=== PATIENT | male | born 1955 | race Caucasian/White ===

== ENCOUNTER 2024-11-20 04:49 | Observation (INO) | payer BC, OTHER, SELFPAY ==
--- NOTE | 2024-11-20 06:18 | RAD REPORT ---
EXAM: XR Chest, 1 View CLINICAL HISTORY: The patient is 69 years old and is Male; cough, fever TECHNIQUE: Frontal view of the chest. COMPARISON: No relevant prior studies available. FINDINGS: Lungs: Unremarkable. No consolidation. Pleural space: Unremarkable. No pneumothorax. Heart: Unremarkable. Mediastinum: Unremarkable. Normal mediastinal contour. Bones/joints: No acute findings. IMPRESSION: No acute findings in the chest. Electronically signed by: Eros Bundy MD 11/20/2024 06:06 AM [facility] 8 Due to temporary technical issues with the PACS/[employer] reporting system, reports are being jorge luis d by the in-house radiologist without review as a courtesy to ensure prompt reporting the interpreting radiologist is fully responsible for the content of the report. Transcribed Date/Time: 11/20/2024 6:18 AM
[2024-11-20] MEDS ORDERED: VANCOMYCIN 1 GM/VIAL ONE (06:36)
[2024-11-20] MEDS ORDERED: NA CHLORIDE 0.9% 250 ML ONE (06:39)
[2024-11-20 06:57] LABS: PT Prothrombin Time 12.7 SECONDS (9.4-12.5); PTT, Activated Partial Thromb 30.9 SECONDS (24.3-36.9); Protime INR 1.21
[2024-11-20 07:15] LABS: Albumin 3.7 g/dL (3.4-5.0); Anion Gap 10.5 mEq/L (5.0-15.0); Bilirubin Total 3.1 mg/dL (0.2-1.0); Globulin 3.8 g/dL (2.3-3.5); Potassium 3.5 mEq/L (3.5-5.1); Protein, Total 7.5 g/dL (6.4-8.2)
[2024-11-20 07:17] LABS: Absolute Eosinophils 0.1 K/uL (0-0.5); Absolute Lymphocytes (CBC) 0.9 K/uL (0.7-4.9); Absolute Monocytes 0.8 K/uL (0.1-1.3); Absolute Neutrophil 7.3 K/uL (1.8-8.0); Basophils % 0.1 % (0-1.3); Eosinophils % 0.8 % (0-4.4); Hematocrit 43.6 % (39.6-49.0); Hemoglobin 15.3 g/dL (13.6-17.9); Lymphocytes % 10.3 % (15.3-44.8); MCHC 35.1 g/dL (32.0-36.0); MCV 82.5 fL (80-100); MPV 7.4 fL (7.6-11.3); Monocytes % 8.8 % (3.3-12.3); Nucleated Red Blood Cells % 0.2 % (0-0); Platelets 157 thou/uL (152-406); RBC Red Blood Cell Count 5.29 M/uL (4.33-5.43); Red Cell Distribution Width 13.9 % (12.1-15.2)
--- NOTE | 2024-11-20 07:35 | RAD REPORT ---
EXAM: US Duplex Left Lower Extremity Veins CLINICAL HISTORY: The patient is 69 years old and is Male; Pain;Swelling TECHNIQUE: Real-time duplex ultrasound scan of the left lower extremity veins integrating B-mode tw o-dimensional vascular structure, Doppler spectral analysis, color flow Doppler imaging and Impression. COMPARISON: No relevant prior studies available. FINDINGS: Deep veins: Unremarkable. No DVT in the visualized common femoral, femoral, or popliteal veins. The veins demonstrate normal color flow, are normally compressible where visualized, with normal phasic flow and/or augmentation response. Soft tissues: No acute findings. IMPRESSION: No evidence of DVT in the left lower extremity veins. Electronically signed by: Eros Bundy MD 11/20/2024 07:30 AM [facility] 8 Due to temporary technical issues with the PACS/[employer] sc[employer] reporting system, reports are being signed by the in-house radiologist without review as a courtesy to ensure prompt reporting the interpreting radiologist is fully responsible for the content of the report. Transcribed Date/Time: 11/20/2024 7:34 AM
--- NOTE | 2024-11-20 08:56 | RAD REPORT ---
EXAMINATION: Lower Extremity W/ Cont CLINICAL INDICATION: Male, 69 years old.leg pain and swelling TECHNIQUE: CT above extremity was performed with contrast. Reformats were performed. One or more of t he following dose reduction techniques were used: Automated exposure control, adjustment of the mA and/or kV according to patient size, and/or iterative reconstruction. Unless otherwise specified, inc idental findings do not require dedicated imaging follow-up. [id number]. COMPARISON: No prior exam. FINDINGS: Status post left knee arthroplasty. Nonspecific small knee effusion. No evidence of hardware complica tions. Major arterial and venous structures are grossly unremarkable. These were assessed on ultrasound brigido ier in the day. Heterogeneous enlargement of the right medial head of the gastrocnemius muscle with intermixed areas of high attenuation. This is suspicious for an intramuscular hematoma. No evidence of active bleeding. IMPRESSION: Enlargement of the medial head of the left gastrocnemius muscle concerning for possible muscle injury an intramuscular hematoma. No evidence of active bleeding. No acute fractures. MRI with and without contrast can be considered if trauma considered unlikely.
--- NOTE | 2024-11-20 08:57 | RAD REPORT ---
EXAMINATION: US LOWER EXTREMITIES ARTERIAL DOPPLER LEFT CLINICAL INDICATION: Male, 69 years old. Pain;Swelling TECHNIQUE: Arterial duplex ultrasound was performed of the left lower extremity with real-time and Do ppler evaluation. [id number]. COMPARISON: No prior exam. FINDINGS: Left leg Doppler: Common femoral: Waveform: Triphasic Peak systolic velocity (cm/sec): 96 Superficial femoral: Waveform: Triphasic Peak systolic velocity (cm/sec): 91 Popliteal Waveform: Triphasic Peak systolic velocity (cm/sec): 50 Tibial: Waveform: Triphasic Peak systolic velocity (cm/sec): 69 Dorsalis pedis: Waveform: Triphasic Peak systolic velocity (cm/sec): 52 IMPRESSION: Unremarkable left lower extremity arterial ultrasound.
--- NOTE | 2024-11-20 10:17 | EDPHYS ---
Physician Documentation [facility] Name: Michael Thapa III Age: 69 yrs Sex: Male : 1955 Arrival Date: 11/20/2024 Time: 04:49 Bed 7 Private MD: ED Physician Niranjan Mccurdy HPI: 11/20 04:53 This 69 yrs old Male presents to ER via Unassigned with complaints of Leg Pain. rn 04:53 The patient presents with pain, swelling, tenderness. The complaints affect the left rn calf. Onset: The symptoms/episode began/occurred yesterday. Modifying factors: The symptoms are alleviated by elevating leg, Ice pack. Severity of symptoms: At their worst the symptoms were moderate, in the emergency department the symptoms have improved. The patient has not experienced similar symptoms in the past. Patient reports noticed left calf swelling and discoloration with warmth that began yesterday. States he noticed after [place]. Denies any trauma or injury. Does not take blood thinners. Never had blood clot. No recent procedures or surgery. No known cancer. Patient reports feeling feverish and also cough and upper respiratory symptoms. Patient has never had this happen before. Reports improvement with elevation and ice pack.. Historical: - Allergies: 05:54 NKDA; ay - Immunization history:: Last tetanus immunization: up to date. - Infectious Disease History:: Denies. - Family history:: not pertinent. - Social history:: Smoking status: Patient denies any tobacco usage or history of. - Hospitalizations: : No recent hospitalization is reported. ROS: 04:54 Constitutional: Positive for subjective fever and chills ENT: Positive for congestion rn and sore throat Cardiovascular: Negative for chest pain, palpitations, and edema, Respiratory: Positive for cough, negative for shortness of breath Abdomen/GI: Negative for abdominal pain, nausea, vomiting, diarrhea, and constipation, MS/Extremity: Positive for left leg swelling and pain with warmth Skin: Positive for discoloration left leg Neuro: Negative for headache, weakness, numbness, tingling, and seizure, Exam: 04:54 Constitutional: This is a well developed, well nourished patient who is awake, alert, rn and in no acute distress. Cardiovascular: Regular rate and rhythm. No pulse deficits. Respiratory: Speaking full sentences, unlabored. MS/ Extremity: Pulses equal, no cyanosis. Neurovascular intact. Left calf with fullness and tenderness with warmth and almost ecchymotic hue. No tenderness of popliteal fossa or along proximal venous system. Strong dorsalis pedis pulse. Left calf with increased circumference compared to right calf. 06:49 ECG was reviewed by the Attending Physician. rn Vital Signs: 05:00 BP 117 / 68; Pulse 66; Resp 20; Temp 98.8; Pulse Ox 93% on R/A; ay 06:30 BP 122 / 105; Pulse 56; Resp 19; Pulse Ox 98% on 3 lpm NC; ay 07:34 BP 103 / 68; Pulse 65; Resp 16; Pulse Ox 99% ; ko1 09:56 BP 132 / 73; Pulse 61; Resp 15; Pulse Ox 100% ; ko1 11:33 Weight 78.47 kg; Height 5 ft. 6 in. ; db 11:33 Body Mass Index 27.92 (78.47 kg, 167.64 cm) db [place] Coma Score: 04:59 Eye Response: spontaneous(4). Motor Response: obeys commands(6). Verbal Response: ay oriented(5). Total: 15. MDM: 04:52 Medical Screening Exam initiated rn 07:32 Transition of care: After a detail discussion of the patient's case, care is rn transferred to Niranjan Mccurdy MD. 10:16 Differential diagnosis: Cellulitis, myositis, hematoma. Data reviewed: vital signs, rt nurses notes, lab test result(s), radiologic studies. Consideration of Admission/Observation Patient was admitted/placed on observation. Management of patient was discussed with the following: Hospitalist: Agrees to admit. I considered the following discharge prescriptions or medication management in the emergency department Medications were administered in the Emergency Department. See MAR. Independent interpretation of the following test(s) in the Emergency Department CT Scan: My interpretation is No fracture seen on interpretation of CT images. Counseling: I had a detailed discussion with the patient and/or guardian regarding the historical points, exam findings, and any diagnostic results supporting the discharge/admit diagnosis, lab results, radiology results, the need for further work-up and treatment in the hospital. Response to treatment: the patient's symptoms have mildly improved after treatment. 11/20 04:53 Order name: Blood Culture Adult (2) rn 11/20 04:53 Order name: CBC with Diff; Complete Time: 07:33 rn 11/20 04:53 Order name: CMP; Complete Time: 07:33 rn 11/20 04:53 Order name: Lactate w/ 2H reflex if indic.; Complete Time: 07:14 rn 11/20 04:53 Order name: Protime (+inr); Complete Time: 07:14 rn 11/20 04:53 Order name: Ptt, Activated; Complete Time: 07:14 rn 11/20 04:53 Order name: Flu; Complete Time: 07:45 rn 11/20 06:40 Order name: Creatine Phosphokinase; Complete Time: 07:33 EDMS 11/20 06:46 Order name: Glucose, Ancillary Testing; Complete Time: 06:51 EDMS 11/20 10:42 Order name: Urinalysis w/ reflexes EDMS 11/20 10:42 Order name: Basic Metabolic Panel EDMS 11/20 10:42 Order name: Basic Metabolic Panel EDMS 11/20 10:42 Order name: Basic Metabolic Panel EDMS 11/20 10:42 Order name: Basic Metabolic Panel EDMS 11/20 10:42 Order name: Basic Metabolic Panel EDMS 11/20 10:42 Order name: Basic Metabolic Panel EDMS 11/20 10:42 Order name: Basic Metabolic Panel EDMS 11/20 10:42 Order name: Basic Metabolic Panel EDMS 11/20 10:42 Order name: CBC with Automated Diff EDMS 11/20 10:42 Order name: CBC with Automated Diff EDMS 11/20 10:42 Order name: CBC with Automated Diff EDMS 11/20 10:42 Order name: CBC with Automated Diff EDMS 11/20 10:42 Order name: CBC with Automated Diff EDMS 11/20 10:42 Order name: CBC with Automated Diff EDMS 11/20 10:42 Order name: CBC with Automated Diff EDMS 11/20 10:42 Order name: CBC with Automated Diff EDMS 11/20 10:42 Order name: Magnesium EDMS 11/20 10:42 Order name: Magnesium EDMS 11/20 10:42 Order name: Magnesium EDMS 11/20 10:42 Order name: Magnesium EDMS 11/20 10:42 Order name: Magnesium EDMS 11/20 10:42 Order name: Magnesium EDMS 11/20 10:42 Order name: Magnesium EDMS 11/20 10:42 Order name: Magnesium EDMS 11/20 10:42 Order name: Phosphorus EDMS 11/20 10:42 Order name: Phosphorus EDMS 11/20 10:42 Order name: Phosphorus EDMS 11/20 10:42 Order name: Phosphorus EDMS 11/20 10:42 Order name: Phosphorus EDMS 11/20 10:42 Order name: Phosphorus EDMS 11/20 10:42 Order name: Phosphorus EDMS 11/20 10:42 Order name: Phosphorus EDMS 11/20 13:30 Order name: Urinalysis w/ reflexes eb 11/20 13:44 Order name: Urinalysis w/ reflexes EDMS 11/20 04:53 Order name: Chest Single View XRAY; Complete Time: 07:14 rn 11/20 04:53 Order name: Extremity Venous Uni Ltd US rn 11/20 04:53 Order name: Lower Extremity Artery Uni Ltd ; Complete Time: 08:58 rn 11/20 06:01 Order name: Lower Extremity W/ Cont; Complete Time: 08:58 EDAL 11/20 18:28 Order name: MRI [facility] 11/20 10:42 Order name: CONS Physician Consult [facility] 11/20 04:53 Order name: Accucheck; Complete Time: 06:35 rn 11/20 04:53 Order name: Cardiac monitoring; Complete Time: 05:18 rn 11/20 04:53 Order name: EKG - Nurse/Tech; Complete Time: 05:18 rn 11/20 04:53 Order name: IV Saline Lock - Large Bore; Complete Time: 06:35 rn 11/20 04:53 Order name: Labs collected and sent; Complete Time: 07:03 rn 11/20 04:53 Order name: O2 Per Protocol; Complete Time: 05:28 rn 11/20 04:53 Order name: O2 Sat Monitoring; Complete Time: 05:27 rn 11/20 04:53 Order name: Vital Signs; Complete Time: 05:27 rn EC:49 Rate is 69 beats/min. Rhythm is regular. QRS [place] is Normal. WI interval is normal. QRS rn interval is normal. QT interval is normal. No Q waves. T waves are Normal. No ST changes noted. Clinical impression: Normal ECG. Interpreted by me. Reviewed by me. Administered Medications: 06:47 Drug: vancoMYCIN IVPB 1 grams IVPB once over 2 hrs Route: IVPB; Infused Over: 2 hrs; ay Site: left forearm; 20:53 Follow up: Response: No adverse reaction; IV Status: Infusion continued upon admission ha1 Disposition Summary: 11/20/24 10:15 Hospitalization Ordered Notes: Hospitalization Status: Inpatient Admission rt Provider: Kurt Maier rt Location: Telemetry/MedSurg (Inpatient) rt Condition: Stable rt Problem: new rt Symptoms: are unchanged rt Bed/Room Type: Standard rt Room Assignment: 204(11/20/24 18:51) eb Diagnosis - Cellulitis to left lower extremity rt Forms: - Medication Reconciliation Form rt - SBAR form rt - Leadership Thank You Letter rt Signatures: Dispatcher [employer] EDMS Danial Zavala MD MD rn Botello, Elizabeth eb [place], Ryan, MD MD rt Gerald Mendoza RN RN ay Ayala, Heidy RN ha1 Corrections: (The following items were deleted from the chart) 04:53 04:53 BLOOD CULTURE*+BA.LAB.BRZ ordered. EDMS EDMS 04:53 04:53 CBC+H.LAB.BRZ ordered. EDMS EDMS 04:53 04:53 COMPREHENSIVE METABOLIC PANEL+C.LAB.BRZ ordered. EDMS EDMS 04:53 04:53 LACTATE+C.LAB.BRZ ordered. EDMS EDMS 04:53 04:53 PROTIME (+INR)+COAG.LAB.BRZ ordered. EDMS EDMS 04:53 04:53 PTT, ACTIVATED+COAG.LAB.BRZ ordered. EDMS EDMS 04:53 04:53 Influenza Screen (A \T\ B)+BA.LAB.BRZ ordered. EDMS EDMS 04:53 04:53 Chest Single View+RAD.RAD.BRZ ordered. EDMS EDMS 04:53 04:53 Extremity Venous Uni Ltd+US.RAD.BRZ ordered. EDMS EDMS 04:53 04:53 Lower Extremity Artery Uni Ltd+US.RAD.BRZ ordered. EDMS EDMS 05:54 05:54 Allergies: No Known Allergies; ay ay 06:40 04:55 CREATINE PHOSPHOKINASE+C.LAB.BRZ ordered. EDMS EDMS 18:51 10:15 rt eb
--- NOTE | 2024-11-20 10:17 | ER ---
Nurse's Notes [facility] Name: Michael Thapa III Age: 69 yrs Sex: Male : 1955 Arrival Date: 11/20/2024 Time: 04:49 Bed 7 Private MD: Diagnosis: Cellulitis to left lower extremity Presentation: 11/20 05:47 Chief complaint: EMS states: Left calf pain. Coronavirus screen: Client denies travel ay out of the [place] in the last 14 days. Ebola Screen: No symptoms or risks identified at this time. Initial Sepsis Screen: Does the patient meet any 2 criteria? No. Patient's initial sepsis screen is negative. Does the patient have a suspected source of infection? No. Patient's initial sepsis screen is negative. Risk Assessment: Do you want to hurt yourself or someone else? Patient reports no desire to harm self or others. Note pt BIBA with a c/o left calf pain and discoloration. Pt is alert and oriented VSS, afebrile, strong bilateral pedal pulses. Placed on 2L NC, precision instrument maker and repairer on. Onset of symptoms is unknown. 05:47 Method Of Arrival: EMS: [facility] ay 05:47 Acuity: BIANCA 3 ay Triage Assessment: 05:55 General: Appears in no apparent distress. Behavior is calm, cooperative. Pain: ay Complains of pain in left calf. EENT: No signs and/or symptoms were reported regarding the EENT system. Neuro: Level of Consciousness is awake, alert, obeys commands, Oriented to person, place, time, situation, Speech is normal. Cardiovascular: Denies chest pain, nausea, vomiting, Rhythm is regular. Respiratory: Airway is patent Respiratory pattern is regular, symmetrical. GI: Abdomen is round. : No signs and/or symptoms were reported regarding the genitourinary system. Derm: Reports discoloration to left calf. Historical: - Allergies: 05:54 NKDA; ay - Immunization history:: Last tetanus immunization: up to date. - Infectious Disease History:: Denies. - Family history:: not pertinent. - Social history:: Smoking status: Patient denies any tobacco usage or history of. - Hospitalizations: : No recent hospitalization is reported. Screenin:00 [facility] ED Fall Risk Assessment (Adult) History of falling in the last 3 months, ay including since admission No falls in past 3 months (0 pts) Confusion or Disorientation No (0 pts) Intoxicated or Sedated No (0 pts) Impaired Gait No (0 pts) Mobility Assist Device Used No (0 pt) Altered Elimination No (0 pt) Score/Fall Risk Level 0 - 2 = Low Risk Oriented to surroundings, Maintained a safe environment, Educated pt \T\ family on fall prevention, incl call for assistance when getting out of bed. Abuse screen: Denies threats or abuse. Nutritional screening: No deficits noted. Tuberculosis screening: No symptoms or risk factors identified. Assessment: 04:59 General: Appears in no apparent distress. Behavior is calm, cooperative. Pain: ay Complains of pain in Left calf. Neuro: Level of Consciousness is awake, alert, obeys commands, Oriented to person, place, time, situation, Speech is normal. Cardiovascular: Capillary refill < 3 seconds in bilateral toes. Respiratory: Airway is patent Respiratory effort is even, unlabored, Respiratory pattern is regular, symmetrical. GI: No signs and/or symptoms were reported involving the gastrointestinal system. : No signs and/or symptoms were reported regarding the genitourinary system. EENT: No signs and/or symptoms were reported regarding the EENT system. Derm: No signs and/or symptoms reported regarding the dermatologic system. 07:30 Reassessment: Patient appears in no apparent distress at this time. Patient and/or db family updated on plan of care and expected duration. Pain level reassessed. Patient is alert, oriented x 3, equal unlabored respirations, skin warm/dry/pink. 08:30 Reassessment: Patient appears in no apparent distress at this time. Patient and/or db family updated on plan of care and expected duration. Pain level reassessed. Patient is alert, oriented x 3, equal unlabored respirations, skin warm/dry/pink. 09:30 Reassessment: Patient appears in no apparent distress at this time. Patient and/or db family updated on plan of care and expected duration. Pain level reassessed. Patient is alert, oriented x 3, equal unlabored respirations, skin warm/dry/pink. 11:30 Reassessment: Patient appears in no apparent distress at this time. Patient and/or db family updated on plan of care and expected duration. Pain level reassessed. Patient is alert, oriented x 3, equal unlabored respirations, skin warm/dry/pink. 12:30 Reassessment: Patient appears in no apparent distress at this time. Patient and/or db family updated on plan of care and expected duration. Pain level reassessed. Patient is alert, oriented x 3, equal unlabored respirations, skin warm/dry/pink. 13:44 Reassessment: SEE [facility] FOR CONTINUED DOCUMENTATION. db Vital Signs: 05:00 BP 117 / 68; Pulse 66; Resp 20; Temp 98.8; Pulse Ox 93% on R/A; ay 06:30 BP 122 / 105; Pulse 56; Resp 19; Pulse Ox 98% on 3 lpm NC; ay 07:34 BP 103 / 68; Pulse 65; Resp 16; Pulse Ox 99% ; ko1 09:56 BP 132 / 73; Pulse 61; Resp 15; Pulse Ox 100% ; ko1 11:33 Weight 78.47 kg; Height 5 ft. 6 in. ; db 11:33 Body Mass Index 27.92 (78.47 kg, 167.64 cm) db [place] Coma Score: 04:59 Eye Response: spontaneous(4). Motor Response: obeys commands(6). Verbal Response: ay oriented(5). Total: 15. ED Course: 04:51 Patient arrived in ED. al5 04:51 Danial Zavala MD is Attending Physician. al5 04:59 Gerald Mendoza, RN is Primary Nurse. ay 05:00 Patient has correct armband on for positive identification. Bed in low position. Call ay light in reach. Side rails up X2. 05:18 EKG done, by ED staff, reviewed by Danial Zavala MD. hw 05:25 Chest Single View XRAY In Process Unspecified. EDMS 05:46 Extremity Venous Uni Ltd US In Process Unspecified. EDMS 05:46 Lower Extremity Artery Uni Ltd US In Process Unspecified. EDMS 05:54 Triage completed. ay 05:55 Arm band placed on right wrist. ay 06:49 Maintain EMS IV. Dressing intact. Good blood return noted. Site clean \T\ dry. Gauge \T\ ay site: 20 LFA. Flushed with 10 mL NS. 07:35 Attending Physician role handed off by Danial Zavala MD rt 07:35 Niranjan Mccurdy MD is Attending Physician. rt 07:57 Lower Extremity W/ Cont In Process Unspecified. EDMS 10:15 Kurt Maier is Hospitalizing Provider. rt 13:44 No provider procedures requiring assistance completed. Patient admitted, IV remains in db place. 13:44 Provided Education on: ADMISSION. Client placed on continuous cardiac and pulse db oximetry monitoring. NIBP monitoring applied. surgical dressing maker on. Pulse ox on. NIBP on. Warm blanket given. Pillow given. Administered Medications: 06:47 Drug: vancoMYCIN IVPB 1 grams IVPB once over 2 hrs Route: IVPB; Infused Over: 2 hrs; ay Site: left forearm; 20:53 Follow up: Response: No adverse reaction; IV Status: Infusion continued upon admission ha1 Medication: 05:00 VIS not applicable for this client. ay Outcome: 10:15 Decision to Hospitalize by Provider. rt 13:44 Admitted to ER Hold. [facility]. db 13:44 Condition: stable 13:44 Instructed on the need for admit, 20:53 Patient left the ED. ha1 Signatures: Dispatcher [employer] EDMS Danial Zavala MD MD rn Ayala, Heidy RN RN ha1 Brina Wade RN RN ko1 Jessica Gurrola RN RN db Niranjan Mccurdy MD MD rt Chelsea Stark RN RN Mariaa Lovett Awudu, RN RN ay Corrections: (The following items were deleted from the chart) 05:54 05:54 Allergies: No Known Allergies; ay ay
--- NOTE | 2024-11-20 10:52 | P.HP ---
Certification for Inpatient Patient admitted to: Inpatient With expected LOS: >2 Midnights Practitioner: I am a practitioner with admitting privileges, knowledge of patient current condition, hospital course, and medical plan of care. Services: Services provided to patient in accordance with Admission requirements found in Title 42 Section 412.3 of the Code of Federal Regulations Patient History Date of Service: 11/20/24 Reason for admission: LLE hematoma, cellulitis, myositis History of Present Illness: Michael Thapa is a 69 year old male with pmhx HTN who presents to the ED with c/o Left calf swelling. He presented with swelling, discoloration, and tenderness to his left calf. He reports obvious swelling and pain started yesterday at 4 pm which has worsen and decided at 2 AM this morning that he needed to come to the ED. 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 Laboratory evaluation significant for left shift neutrophils 80, sodium 133, serum glucose 124. CT left lower extremity report "Enlargement of the medial head of the left gastrocnemius muscle concerning for possible muscle injury an intramuscular hematoma. No evidence of active bleeding. No acute fractures." Venous ultrasound reports "No evidence of DVT in the left lower extremity veins" Arterial ultrasound report "Unremarkable left lower extremity arterial ultrasound" Chest x-ray report "No acute findings in the chest" Michael will be admitted to hospitalist service for further evaluation and treatment, Dr. Moreau and Dr. Ferguson consulted Allergies No Known Allergies Allergy (Unverified 11/20/24 05:55) Home Medications: Losartan/Hydrochlorothiazide [Losartan-Hctz 50-12.5 mg Tab] 1 tab PO 1X 11/20/24 Tramadol HCl/Acetaminophen [Ultracet Tablet] 1 each PO Q6H PRN #1 11/20/24 - Past Medical/Surgical History -: Hypertension -: Left knee replacement -: Right inguinal hernia -: Right rotator cuff - Family History Family History: Reviewed- Non-Contributory - Social History Smoking Status: Never smoker Alcohol use: No CD- Drugs: No Review of Systems Musculoskeletal: Leg Pain (Left), Other (Left calf swelling) Physical Examination - Physical Exam General: Alert, In no apparent distress, Oriented x3 HEENT: Atraumatic, Normocephalic Neck: 2+ carotid pulse no bruit, JVD not distended Respiratory: Clear to auscultation bilaterally, Normal air movement Cardiovascular: Normal pulses, Regular rate/rhythm, Normal S1 S2 Capillary refill: <2 Seconds Gastrointestinal: Normal bowel sounds, Soft and benign Musculoskeletal: No clubbing Integumentary: No rashes Neurological: Normal speech, Normal tone - Studies Laboratory Data (last 24 hrs) 11/20/24 11/20/24 11/20/24 06:10 06:10 06:10 WBC 9.10 Hgb 15.3 Hct 43.6 Plt Count 157 PT 12.7 H INR 1.21 APTT 30.9 Sodium 133 L Potassium 3.5 BUN 17 Creatinine 1.05 Glucose 124 H Total Bilirubin 3.1 H AST 17 ALT 24 Alkaline Phosphatase 60 Microbiology Data (last 24 hrs): 11/20/24 06:24 Nasopharnyx Influenza Type A Antigen Screen - Final 11/20/24 06:24 Nasopharnyx Influenza Type B Antigen Screen - Final Assessment and Plan - Plan Assessment and Plan Left lower extremity hematoma, cellulitis, and myositis -MRI tibia/filbula -vancomycin -elevate extremity, Ice pack -hold blood thinners -Pulse check Q shift -Vancomycin daily -Dr. Moreau and Dr. Ferguson consulted -NPO, will recheck for increased swelling at midnight Hyperglycemia -Serum glucose 124 -will monitor, A1C in AM HTN -continue home medications DVT ppx hold lovenox d/t Hematoma, hold SCD to affected left Full code LOS 2 days Discharge Plan: Home Plan to discharge in: 48 Hours - Advance Directives Does patient have a Living Will: No Does patient have a Durable POA for Healthcare: No
[2024-11-20] MEDS: NA CHLORIDE 0.9% 1,000 ML IV SCH (11:00)
[2024-11-20] MEDS: VANCOMYCIN 500 MG in NA CHLORIDE 0.9% 100 ML IVPB ONE (12:30)
[2024-11-20] MEDS ORDERED: VANCOMYCIN 500 MG/VIAL ONE (12:38)
[2024-11-20] MEDS ORDERED: NA CHLORIDE 0.9% 100 ML ONE (12:38)
[2024-11-20] MEDS ORDERED: NA CHLORIDE 0.9% 1,000 ML ONE (12:38)
[2024-11-20 13:44] LABS: Specific Gravity > 1.030 (1.005-1.030); Sqamous Epithelial None Seen /HPF (None Seen); Urine Bacteria None Seen /HPF (<20); Urine Bilirubin NEGATIVE (Negative); Urine Blood Negative (Negative); Urine Clarity Clear (Clear); Urine Color Light-Yellow (Yellow); Urine Culture Reflex Order NOT NEEDED; Urine Glucose NEGATIVE (Negative); Urine Ketones NEGATIVE (Negative); Urine Microscopic Reflex YN ORDER UMIC; Urine Nitrite NEGATIVE (Negative); Urine Protein NEGATIVE (Negative); Urine RBC <5 /HPF (None Seen); Urine Urobilinogen Normal (Normal); Urine WBC <5 /HPF (<5)
[2024-11-20] MEDS: FLU (Fluarix Triv) TS24-25(6MOS UP)/PF 45 MCG/0.5 ML Syringe IM ONE (13:45)
[2024-11-20] MEDS: PNEUMOCOCCAL VACCINE 0.5 ML IMVAC ONE (14:00)
--- NOTE | 2024-11-20 18:28 | RAD REPORT ---
Exam: MRI tib-fib left with and without contrast CLINICAL HISTORY: Leg pain. Leg mass TECHNIQUE: axial, sagittal and coronal magnetic resonance imaging of the left tibia/fibula performed with and wi thout contrast. 17 cc MultiHance administered intravenously. COMPARISON: November 20, 2024 CT Findings: 12 x 8 x 3 cm fluid collection (CC by AP by transverse) is present within the medial head of the aby rocnemius muscle extending from below the knee to the mid aspect of the tibia/fibula. The mass has intermediate to high signal on T1 weighted sequences. It has mostly high signal on T2-weighted sequen clark. The internal components of the mass do not enhance. Peripheral enhancement is present. T2 weighted sequences also demonstrate increased signal within adjacent medial head gastrocnemius mus culature. No abnormality of the tibia seen. IMPRESSION: 12 cm mass medial head gastrocnemius muscle has the appearance of a subacute hematoma. Increased signal within the gastroc medius muscle could be a strain or myositis
[2024-11-20] MEDS ORDERED: MORPHINE 2 MG/ML SYR IV PRN (19:16)
--- NOTE | 2024-11-20 20:11 | CON ---
Continuation: Allergies: NONE. Past Surgical History: Include knee replacement a few years ago on the left knee area. Social History: He does not smoke. He does drink alcohol. Family History: No history of DVTs or any conditions of the muscle. Medications: Reviewed. Physical Examination: General: The patient is awake, alert, in no distress. He feels a lot better. HEENT: Pupils are equal and reactive. Anicteric. Neck: Supple. Chest: Clear. Heart: S1, S2. Abdomen: Soft and depressible. No guarding or rebound. No peritoneal signs. Extremities: Over the lower extremity, the patient has previous scars from previous prosthetic. Als o has a small superficial laceration of the proximal anterior tibia. The patient has what he was chalo cribing as a swelling of the calf region on the upper side. No Homans signs. Normal flexion, extens ion of the extremity. Peripheral pulses are strong and present, dorsalis pedis and posterior tibiali s, popliteal. No paresthesias. Full range of motion. No pallor. Good color, good capillary refill , and full range of motion. There is no ecchymosis seen in that region. There are no blisters. The re are no lacerations in the back and next he describes he can now press it nicely than compared with yesterday. No deformities. Neuro: Cranial nerves 2 through 12 grossly normal limits. Extremity CT shows enlargement of the medial head of the left gastrocnemius muscle concerning for pos sible muscle injury or intramuscular hematoma. No evidence of active bleeding. No acute fractures. Venous Doppler shows no evidence of DVT. Arterial Doppler shows unremarkable dorsalis pedis with tr iphasic peak systolic velocity. Assessment: 1.A 69-year-old patient with unknown origin calf tenderness. This happened yesterday afternoon, [place] until this morning when he came to the ER. He has been in the ER. He feels better. Now, it is nice and soft, is still different compared with the opposite side in the induration, but as is descri bed is nice and soft. He has no problem with paresthesias, no pallor. I discussed with him fabiana salcedo diagnosis. Obviously, I do not see any trauma in that area present. Some times you can have a hematoma. I do not see any evidence of cellulitis at this moment. So, we proposed to him and bring the differential diagnosis something called compartment syndrome. Even though we do not have a histo ry for it and he has no symptoms, I still has to discuss with him the findings. There is an option o f putting the Fannie machine to check compartment pressures. He preferred not to do so. He does no t like that needle. Still also the [place] machine, we are trying to get it here in the hospital [facility] it is not available to me at this moment. 2.He has the option of obviously exploration . He does not want to use that option right now. He understands the risks of that. If by tonight the pain goes back again, if the Fannie becom es available, check compartment pressure or even surgery, but at this moment he does not want to use that option. He understands the risks of that. was then sent home. We going to continue observation and then the orthopedic consult was consulted to make sure that the prosthetic nearby whitt s no relationship to this problem. SHANTAL/MODL Voice ID: [id number] Report ID: [id number]
--- NOTE | 2024-11-20 20:35 | CON ---
Date of Consultation: 11/20/2024 Reason For Service: Swelling of the left upper leg. History Of Present Illness: This is a case of a 69-year-old patient admitted to the hospital with pa in over the upper posterior leg region. The etiology of that is unknown. that yesterday he developed pain in that region. He thought that was charley horse and did not pay much attention. By last night, it was getting worse and this morning he just did not improve by [address] [facility], so he comes to the ER, had an extensive workup including venous Dopplers, CAT scans, arterial D opplers, but the etiology of his swelling is unclear. He does not recall any trauma, any hit, any cr ush injuries, any exertion, any trips, any falls. No insect bite. He does say that he just develope d the swelling slowly, but what he says right now is the today is a lot softer than yesterday. Surgi cody consult was obtained for evaluation. Also, Orthopedic consult since the patient has history of to iron knee replacement in that region 7 years ago. He does not remember any twist on the knee neither or any cuts. He has a superficial ulceration in the anterior tibial region and he states it has been there for a week, which is not cellulitic, it does not seem to be related. Review of Systems: No shortness of breath. No chest pain. No fever. Denies any burning or any cramping of that area. The tightness he says is a lot better compared with last night. He denies any numbing sensation or any change on neurological area, any pallor. Has full range of motion of those extremities. Denies any paresthesia or weakness. DICTATION ENDS HERE. SHANTAL/DANETTE Voice ID: [id number] Report ID: [id number]
[2024-11-20 22:19] VITALS: BMI 27.2
[2024-11-20] MEDS: ACETAMINOPHEN 325 MG TABLET PO PRN (22:24)
[2024-11-20] MEDS: LOSARTAN/HCTZ 50-12.5 PO SCH ×2 (23:02→23:43)
[2024-11-21] MEDS: VANCOMYCIN 1.5 GM in NA CHLORIDE 0.9% 500 ML IVPB SCH (01:51)
[2024-11-21] MEDS ORDERED: HYDRALAZINE HCL 20 MG/ML VIAL IV PRN (06:15)
[2024-11-21 07:56] VITALS: O2SAT 97
[2024-11-21 08:31] LABS: Anion Gap 5.5 mEq/L (5.0-15.0); Magnesium 2.2 mg/dL (1.6-2.4); Phosphorus 2.8 mg/dL (2.5-4.9); Potassium 3.5 mEq/L (3.5-5.1)
[2024-11-21] MEDS ORDERED: VANCOMYCIN 1 GM in NA CHLORIDE 0.9% 250 ML IVPB SCH (09:00)
[2024-11-21 09:05] LABS: Absolute Eosinophils 0.1 K/uL (0-0.5); Absolute Monocytes 0.5 K/uL (0.1-1.3); Absolute Neutrophil 5.3 K/uL (1.8-8.0); Basophils % 0.2 % (0-1.3); Eosinophils % 1.7 % (0-4.4); Hematocrit 43.5 % (39.6-49.0); Hemoglobin 15.3 g/dL (13.6-17.9); Lymphocytes % 14.5 % (15.3-44.8); MCH 28.9 pg (27.0-35.0); MCHC 35.1 g/dL (32.0-36.0); MCV 82.6 fL (80-100); MPV 7.4 fL (7.6-11.3); Monocytes % 6.9 % (3.3-12.3); Neutrophils % 76.7 % (41.7-73.7); Platelets 162 thou/uL (152-406); RBC Red Blood Cell Count 5.27 M/uL (4.33-5.43); Red Cell Distribution Width 13.8 % (12.1-15.2)
[2024-11-21] MEDS: POTASSIUM CL SA 10 MEQ TAB PO ONE (09:36)
[2024-11-21 12:18] VITALS: BP 144/70; TEMP 98.7
--- NOTE | 2024-11-21 12:34 | P.DS ---
Admission Date: 11/20/24 Discharge Date: 11/21/24 Disposition: ROUTINE DISCHARGE Discharge Condition: GOOD Reason for Admission: LLE hematoma, cellulitis, myositis Brief History of Present Illness: Diagnosis Left lower extremity hematoma, cellulitis, and myositis Hyperglycemia HTN HPI 11/20/2024 Michael Thapa is a 69 year old male with pmhx HTN who presents to the ED with c/o Left calf swelling. He presented with swelling, discoloration, and tenderness to his left calf. He reports obvious swelling and pain started yesterday at 4 pm which has worsen and decided at 2 AM this morning that he needed to come to the ED. 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 Laboratory evaluation significant for left shift neutrophils 80, sodium 133, serum glucose 124. CT left lower extremity report "Enlargement of the medial head of the left gastrocnemius muscle concerning for possible muscle injury an intramuscular hematoma. No evidence of active bleeding. No acute fractures." Venous ultrasound reports "No evidence of DVT in the left lower extremity veins" Arterial ultrasound report "Unremarkable left lower extremity arterial ultrasound" Chest x-ray report "No acute findings in the chest" Michael will be admitted to hospitalist service for further evaluation and treatment, Dr. Moreau and Dr. Ferguson consulted Hospital Course: Michael Thapa was treated and evaluated for hematoma to left calf. He was evaluated by general surgery Dr. Moreau and orthopedic Dr. Ferguson and it was determined that the hematoma was not blocking the function of his left foot. He had his leg elevated and ICE applied throughout the night. This morning, he has continued to improve, swelling has become more soft to palpation, capillary refill and peripheral pulse remain intact. His need to a lengthy hospital stay was shortened d/t improvement faster than anticipate. On 11/20/2024, Michael was seen on morning rounds and deemed medically stable for discharge. Michael was discharged with instructions to schedule follow-up appointments with PCP, Dr. Ferguson, Dr. Moreau. Michael was provided prescriptions for tramadol, clindamycin, probiotic. Physical Exam General: Alert and Oriented x3, NAD HEENT: Atraumatic, Normocephalic Neck: 2+ carotid pulse no bruit, JVD not distended Respiratory: Clear to auscultation bilaterally, Normal air movement Cardiovascular: Normal pulses, Regular rate/rhythm, Normal S1 S2 Capillary refill: <2 Seconds Gastrointestinal: Normal bowel sounds, Soft and benign Musculoskeletal: No clubbing Integumentary: No rashes Neurological: Normal speech, Normal tone Vital Signs/Physical Exam: Temp Pulse Resp BP Pulse Ox 98.7 F 71 12 144/70 H 97 11/21/24 12:00 11/21/24 12:00 11/21/24 12:00 11/21/24 12:00 11/21/24 12:00 Laboratory Data at Discharge: WBC 6.90 thou/uL (4.3-10.9) 11/21/24 07:40 Hgb 15.3 g/dL (13.6-17.9) 11/21/24 07:40 Hct 43.5 % (39.6-49.0) 11/21/24 07:40 Plt Count 162 thou/uL (152-406) 11/21/24 07:40 PT 12.7 SECONDS (9.4-12.5) H 11/20/24 06:10 INR 1.21 11/20/24 06:10 APTT 30.9 SECONDS (24.3-36.9) 11/20/24 06:10 Sodium 137 mEq/L (136-145) D 11/21/24 07:40 Potassium 3.5 mEq/L (3.5-5.1) 11/21/24 07:40 BUN 17 mg/dL (7-18) 11/21/24 07:40 Creatinine 0.89 mg/dL (0.70-1.30) 11/21/24 07:40 Glucose 105 mg/dL (74-106) 11/21/24 07:40 Phosphorus 2.8 mg/dL (2.5-4.9) 11/21/24 07:40 Magnesium 2.2 mg/dL (1.6-2.4) 11/21/24 07:40 Total Bilirubin 3.1 mg/dL (0.2-1.0) H 11/20/24 06:10 AST 17 U/L (15-37) 11/20/24 06:10 ALT 24 U/L (16-61) 11/20/24 06:10 Alkaline Phosphatase 60 U/L (45-117) 11/20/24 06:10 Home Medications: Losartan/Hydrochlorothiazide [Losartan-Hctz 50-12.5 mg Tab] 2 tab PO DAILY 11/20/24 Tramadol HCl/Acetaminophen [Ultracet Tablet] 1 each PO Q6H PRN #1 11/20/24 Bacillus Coagulans [Probiotics] 1 each PO BID 5 Days #10 tab.chew 11/21/24 clindamycin HCL [Clindamycin HCl] 300 mg PO QID 5 Days #20 cap 11/21/24 New Medications: clindamycin HCL [Clindamycin HCl] 300 mg PO QID 5 Days #20 cap Bacillus Coagulans [Probiotics] 1 each PO BID 5 Days #10 tab.chew Tramadol HCl/Acetaminophen [Ultracet Tablet] 1 each PO Q6H PRN #1 PRN Reason: Pain Scale 5-7 (Moderate) Physician Discharge Instructions: 1. Please call and schedule a follow-up appointment with your PCP in 3-5 days - Please follow-up with your PCP for medication refills/adjustments 2. Please call and schedule a follow-up appointment with Dr. Ferguson in one week 3. Please call and schedule a follow-up appointment with Dr. Moreau in one week 3. Continue regular diet 4. activity restrictions , crutches, nonweight bearing until cleared by Dr. Ferguson 5. Return to the ED if symptoms worsen New medications Tramadol q6h Clindamycin 300 mg 4 times daily x 5 days Probiotic 1 tablet twice a day x 5 days Diet: AHA Activity: Non-weight bearing Followup: Mckinley Moreau MD [ACTIVE - CAN ADMIT] - Sukhdeep Ferguson MD [ACTIVE - CAN ADMIT] - Nya Ya DO [Primary Care Provider] -
--- NOTE | 2024-11-21 12:40 | PN ---
Subjective: The patient is doing well. Feels a lot better. Now he is trying to remember what he di d. He says that before this leg swelling happened, he tripped over a small limb when he was in a carlos oting range. He was seen yesterday by orthopedic doctor, thinks Dr. Ferguson who saw him, and diagnosed with myositis and no other intervention plan. Today he feels better. The area is softer. He is abl e now to move flexion and extension without problem. No pallor. No paresthesias. Good peripheral p ulses. Objective: Chest: Clear. Abdomen: Soft and depressible. Extremities: Good capillary refill. No Homans signs. Good peripheral pulses. No pallor. No pares thesias. Plan: From the surgical standpoint, no plan at this moment. If he goes home, would like to see him in the office as followup and follow with the orthopedic doctor, Dr. Ferguson, too. The Rehab will come today to help him use the crutches, just for stability, in case he needs them. SHANTAL/DANETTE Voice ID: [id number] Report ID: [id number]
--- NOTE | 2024-11-21 14:23 | PN ---
This is a code 44 dictation. The patient initially came in, was admitted for myositis and concern was raised regarding possibility of compartment syndrome. The patient's clinical course was discussed in detail with the hospitalist team. The patient had a consult from General Surgery and Orthopedics who felt that the patient was not at risk for compartment syndrome. Appropriate treatment plan was created for the patient and the patient is safe for discharge today. Therefore, I agree with the code 44. The patient can be conve rted from intubation to observation. /MODL Voice ID: [id number] Report ID: [id number]
--- NOTE | 2024-11-25 12:48 | EKG ---
Test Date: 2024-11-20 Test Time: 05:14:37 Metalsmith Helper: JORDYN MEASUREMENT RESULTS: Intervals: Rate: 69 PA: 156 QRSD: 90 QT: 384 QTc: 411 [place]: P: 45 PA: 156 QRS: 14 T: 39 INTERPRETIVE STATEMENTS: Normal sinus rhythm Normal ECG Compared to ECG 05/29/2013 09:59:33 No significant changes Electronically Signed On 11-25-24 12:37:54 NUT BLANKER OPERATOR by Branden Reyes
== END 2024-11-21 14:57 | disposition home or self-care (01) ==
LOC: ER 04:49 → INTOOBSV 10:34 → ERHOLD 10:34 → 2ND 19:36
PROVIDERS: ADMIT Internal Medicine; ATTEND Internal Medicine
DX: S80.12XA Contusion of left lower leg, initial encounter (principal); L03.116 Cellulitis of left lower limb; M60.9 Myositis, unspecified; I10 Essential (primary) hypertension; R73.9 Hyperglycemia, unspecified; Z96.652 Presence of left artificial knee joint
CPT/HCPCS: 96365; 87040 ×2; 85025 ×2; 81001; 80048; 36415 ×2; 83735; 82550; 84100; 85610; 82947; 83605; 85730; 83036; 80053; 87804 ×2; 73701; 71045; 93926; 93971; 73720; 97116; 97161; 99285; 96366; Q9967; A9577; J7050; J7040; J7030; G0378 ×4; 93005